=== PATIENT | male | born 1975 | race Asian ===

== ENCOUNTER 2017-06-30 21:15 | Emergency (ER) | payer OTHER ==
[~2017-06-30] VITALS: Ht 182.9 cm; Wt 99.8 kg
[2017-06-30] MEDS ORDERED: HYDROCHLOROT12.5 M1 PO (21:31)
[2017-06-30] MEDS ORDERED: AMLODIPINE BESYLATE PO (21:32)
[2017-06-30 23:08] VITALS: BP 129/79; TEMP 98.1
== END 2017-06-30 23:11 | disposition home or self-care (01) ==
LOC: ED 21:15
DX: T78.40XA Allergy, unspecified, initial encounter (principal); H10.9 Unspecified conjunctivitis
CPT/HCPCS: 99282

== ENCOUNTER 2019-02-09 14:45 | Observation (INO) | payer OTHER ==
[~2019-02-09] VITALS: Ht 182.9 cm; Wt 109.9 kg
[2019-02-09] VITALS (8 sets, daily range): BP systolic 149–159; BP diastolic 73–97; TEMP 97.6–98.1; Ht 182.9 cm; Wt 109.9 kg
[~2019-02-09 14:45] MED LIST: AMLODIPINE BESYLATE PO; HYDROCHLOROT12.5 M1 PO
[2019-02-09 15:20] LABS: PLATELET COUNT 273 K/uL (142-355)
[2019-02-09 15:23] LABS: POTASSIUM 3.9 mmol/L (3.6-5.2); SODIUM 142 mmol/L (136-145)
[2019-02-09 15:30] LABS: PARTIAL THROMBOPLASTIN TIME 23.2 SECONDS (24.5-33.6)
[2019-02-10] VITALS: BP 127/74; TEMP 97.5
[2019-02-10 04:00] VITALS: BP 134/64; TEMP 97.5
--- NOTE | 2019-02-10 05:00 | NUR ---
Patient was admitted wiht Chest Pain and is on a 2 gm Na diet plan and is 6'0" at 242.6 lbs. and IBW = 178+/-10% (160-196 lbs.) and kcal needs for IBW x 25 = 2000 kcal/day, x 30 = 2400, x 35 = 2800, x 40 = 3200 kcal/day, protein needs x .8 to 1.5 = 65 to 121 grams per dya and fluids for weight x 25 to 30 = 2760 to 3300 ml per day and per MD's notes also has diarrhea so needs increased fluids but d/t chest pain maybe does not need increased fluids MD's decision. Patient is 137% IBW and BMI = 32.95 and is Class I Obesity. Labes reveal Creatinine Kinase 349 and 405, gl elevated at 133 and the depressed labs are MCHC, PTT, D-Dimer, and per the patient ate pizza last night and then prior to coming to ER ate hotdogs, pain on a scale of 1-10 at 3 per patient. tingling in the right arm. History of HTN, and on Norvasc and HCTZ, no n/v per patient but has diarrhea, smokes tobacco and drinks alcohol, troponin 405, food poisoning, gastritis, HTN, hyperglycemia, ASA, nitroglycerin, Phenegan, Morphine, GI Cocktail. Recommend: 1-Cardiac NCS High Fiber diet, needs to follow the diet plan 2-Maybe talk with PT about exercise as MD feels is appropriate for the patient. 3-Needs heathier eating and exercise.
[2019-02-10 08:00] VITALS: BP 127/84; TEMP 97.4
--- NOTE | 2019-02-10 13:22 | NUR ---
1230 DISCHARGE INSTRUCTIONS GIVEN AND EXPLAINED TO PT. PT VERBALIZED UNDERSTANDING. [facility] SUN[facility] HE [facility] TO KEEP. PT WILL FOLLOW UP WITH DR BOYKIN NEEDED
== END 2019-02-10 12:47 | disposition home or self-care (01) ==
LOC: ED 14:45 → MED/SURG 15:40
PROVIDERS: ADMIT Hospitalist
DX: R07.89 Other chest pain (principal); I10 Essential (primary) hypertension; R73.9 Hyperglycemia, unspecified; E66.8 Other obesity
CPT/HCPCS: 36415; 80053; 82550; 82553; 83880; 84484; 85027; 85379; 85610; 85730; 93005; 96374; 99220; 99284; G0378; J1650; J1885

== ENCOUNTER 2019-07-21 15:54 | Outpatient (CLI) | payer OTHER ==
[~2019-07-21 15:54] MED LIST changes: +CVS OMEPRAZOLE20 MG PO
== END 2019-07-21 23:34 | disposition home or self-care (01) ==
LOC: RAD 15:54
DX: J02.9 Acute pharyngitis, unspecified (principal)

== ENCOUNTER 2019-08-07 06:22 | Emergency (ER) | payer OTHER ==
[~2019-08-07] VITALS: Ht 182.9 cm; Wt 104.3 kg
[2019-08-07 06:30] VITALS: BP 137/84; TEMP 97.7
[2019-08-07 07:19] LABS: PLATELET COUNT 244 K/uL (142-355)
[2019-08-07 07:24] LABS: POTASSIUM 3.5 mmol/L (3.6-5.2)
== END 2019-08-07 08:38 | disposition home or self-care (01) ==
LOC: ED 06:22
PROVIDERS: Emergency Medicine
DX: R51 Headache (principal)
CPT/HCPCS: 80053; 85027; 93005; 99283

== ENCOUNTER 2019-08-10 00:41 | Emergency (ER) | payer OTHER ==
[~2019-08-10] VITALS: Ht 182.9 cm; Wt 103.0 kg
[2019-08-10 01:41] VITALS: BP 116/65; TEMP 97.7
== END 2019-08-10 01:41 | disposition home or self-care (01) ==
LOC: ED 00:41
DX: J34.89 Other specified disorders of nose and nasal sinuses (principal)
CPT/HCPCS: 96372; 99282; J1885

== ENCOUNTER 2020-01-09 01:51 | Emergency (ER) | payer OTHER ==
[~2020-01-09] VITALS: Ht 182.9 cm; Wt 104.3 kg
[2020-01-09 02:33] VITALS: BP 141/80; TEMP 98.9
== END 2020-01-09 02:34 | disposition home or self-care (01) ==
LOC: ED 01:51
DX: M54.2 Cervicalgia (principal); G44.209 Tension-type headache, unspecified, not intractable
CPT/HCPCS: 99282

== ENCOUNTER 2020-02-06 04:10 | Emergency (ER) | payer OTHER ==
[~2020-02-06] VITALS: Ht 182.9 cm; Wt 104.3 kg
[2020-02-06 04:59] VITALS: BP 136/76; TEMP 97.7
== END 2020-02-06 05:00 | disposition home or self-care (01) ==
LOC: ED 04:10
DX: F41.0 Panic disorder [episodic paroxysmal anxiety] (principal)
CPT/HCPCS: 99282

== ENCOUNTER 2020-03-14 22:56 | Emergency (ER) | payer OTHER ==
[~2020-03-14] VITALS: Ht 182.9 cm; Wt 106.6 kg
[2020-03-14 23:08] VITALS: BP 139/79; TEMP 98
== END 2020-03-14 23:17 | disposition home or self-care (01) ==
LOC: ED 22:56
DX: R51.9 Headache, unspecified (principal)
CPT/HCPCS: 99281

== ENCOUNTER 2020-03-19 14:20 | Emergency (ER) | payer OTHER ==
[~2020-03-19] VITALS: Ht 182.9 cm; Wt 110.2 kg
[2020-03-19 18:37] VITALS: BP 150/81; TEMP 98.2
== END 2020-03-19 18:37 | disposition home or self-care (01) ==
LOC: ED 14:20
DX: R51.9 Headache, unspecified (principal); M62.838 Other muscle spasm; F41.8 Other specified anxiety disorders
CPT/HCPCS: 96372; 99283; J1885

== ENCOUNTER 2020-03-27 14:54 | Emergency (ER) | payer OTHER ==
[~2020-03-27] VITALS: Ht 182.9 cm; Wt 110.2 kg
[2020-03-27 15:05] VITALS: BP 142/79; TEMP 98.1
== END 2020-03-27 15:38 | disposition home or self-care (01) ==
LOC: ED 14:54
DX: F41.0 Panic disorder [episodic paroxysmal anxiety] (principal); F41.8 Other specified anxiety disorders
CPT/HCPCS: 93005; 96372; 99283; J2060

== ENCOUNTER 2020-07-02 11:01 | Emergency (ER) | payer OTHER ==
[~2020-07-02] VITALS: Ht 182.9 cm; Wt 110.2 kg
[2020-07-02 11:10] VITALS: TEMP 97.9
[2020-07-02 12:08] LABS: PLATELET COUNT 281 K/uL (142-355)
[2020-07-02 12:17] LABS: POTASSIUM 4.2 mmol/L (3.6-5.2); SODIUM 140 mmol/L (136-145)
[2020-07-02 13:30] VITALS: BP 127/77
== END 2020-07-02 14:00 | disposition home or self-care (01) ==
LOC: ED 11:01
PROVIDERS: Family Medicine
DX: K29.70 Gastritis, unspecified, without bleeding (principal); K21.9 Gastro-esophageal reflux disease without esophagitis; F41.8 Other specified anxiety disorders
CPT/HCPCS: 80053; 84484; 85027; 93005; 99283

== ENCOUNTER 2020-08-05 01:26 | Emergency (ER) | payer OTHER ==
[2020-08-15 12:47] LABS: POTASSIUM 3.4 mmol/L (3.6-5.2); SODIUM 139 mmol/L (136-145)
[2020-08-15 12:49] LABS: PLATELET COUNT 200 K/uL (142-355)
== END 2020-08-05 03:00 | disposition home or self-care (01) ==
LOC: ED 01:26
PROVIDERS: Family Medicine
DX: R07.89 Other chest pain (principal); K21.9 Gastro-esophageal reflux disease without esophagitis; M79.18 Myalgia, other site
CPT/HCPCS: 80048; 82553; 85027; 93005; 96374; 99284; J1885

== ENCOUNTER 2020-08-20 15:19 | Emergency (ER) | payer OTHER ==
[~2020-08-20] VITALS: Ht 182.9 cm; Wt 104.3 kg
[2020-08-20 16:30] LABS: PLATELET COUNT 307 K/uL (142-355)
[2020-08-20 16:44] LABS: POTASSIUM 3.7 mmol/L (3.6-5.2); SODIUM 139 mmol/L (136-145)
[2020-08-20 18:24] VITALS: BP 143/81; TEMP 97.7
== END 2020-08-20 18:24 | disposition home or self-care (01) ==
LOC: ED 15:19
PROVIDERS: Family Medicine
DX: M25.512 Pain in left shoulder (principal); M62.838 Other muscle spasm
CPT/HCPCS: 80053; 84484; 85027; 93005; 96372; 99283; 99284; J1885

== ENCOUNTER 2020-08-31 05:59 | Emergency (ER) | payer OTHER ==
[~2020-08-31] VITALS: Ht 203.2 cm; Wt 104.3 kg
[2020-08-31 06:05] VITALS: TEMP 98.3
[2020-08-31 06:29] LABS: PLATELET COUNT 275 K/uL (142-355)
[2020-08-31 06:48] LABS: POTASSIUM 3.4 mmol/L (3.6-5.2); SODIUM 139 mmol/L (136-145)
[2020-08-31 07:22] VITALS: BP 137/78
== END 2020-08-31 07:33 | disposition home or self-care (01) ==
LOC: ED 05:59
PROVIDERS: Emergency Medicine
DX: K21.9 Gastro-esophageal reflux disease without esophagitis (principal); F10.10 Alcohol abuse, uncomplicated; Y90.0 Blood alcohol level of less than 20 mg/100 ml; R79.89 Other specified abnormal findings of blood chemistry
CPT/HCPCS: 36415; 80053; 80320; 82150; 83690; 84484; 85027; 93005; 96374; 99284; J3490

== ENCOUNTER 2020-10-03 08:13 | Emergency (ER) | payer OTHER ==
[~2020-10-03] VITALS: Ht 182.9 cm; Wt 104.3 kg
[2020-10-03 08:20] VITALS: TEMP 96.7
[2020-10-03 09:30] VITALS: BP 158/80
== END 2020-10-03 09:30 | disposition home or self-care (01) ==
LOC: ED 08:13
DX: M79.18 Myalgia, other site (principal); T88.1XXA Other complications following immunization, not elsewhere classified, initial encounter; T50.B95A Adverse effect of other viral vaccines, initial encounter; Y84.8 Other medical procedures as the cause of abnormal reaction of the patient, or of later complication, without mention of misadventure at the time of the procedure; Y92.89 Other specified places as the place of occurrence of the external cause
CPT/HCPCS: 93005; 99282

== ENCOUNTER 2020-10-07 16:31 | Emergency (ER) | payer OTHER ==
[~2020-10-07] VITALS: Ht 182.9 cm; Wt 104.3 kg
[2020-10-07 22:38] VITALS: BP 134/80; TEMP 98.2
== END 2020-10-07 22:39 | disposition home or self-care (01) ==
LOC: ED 16:31
DX: G44.40 Drug-induced headache, not elsewhere classified, not intractable (principal); T88.1XXA Other complications following immunization, not elsewhere classified, initial encounter; T50.B95A Adverse effect of other viral vaccines, initial encounter; Y84.8 Other medical procedures as the cause of abnormal reaction of the patient, or of later complication, without mention of misadventure at the time of the procedure; Y92.89 Other specified places as the place of occurrence of the external cause
CPT/HCPCS: 96372; 99283; J1885

== ENCOUNTER 2020-10-17 07:02 | Emergency (ER) | payer OTHER ==
[~2020-10-17] VITALS: Ht 182.9 cm; Wt 106.6 kg
[2020-10-17 07:10] VITALS: BP 138/77; TEMP 96.6
== END 2020-10-17 08:00 | disposition home or self-care (01) ==
LOC: ED 07:02
DX: R09.81 Nasal congestion (principal); U07.1 COVID-19
CPT/HCPCS: 87635; 96372; 99283; J1100; U0003

== ENCOUNTER 2020-10-20 16:06 | Outpatient (CLI) | payer OTHER | END 2020-10-20 19:33 | disposition home or self-care (01) | LOC: RAD 16:06 | PROVIDERS: ATTEND Internal Medicine | DX: R05 Cough (principal) ==

== ENCOUNTER 2021-09-29 05:43 | Emergency (ER) | payer OTHER ==
[~2021-09-29] VITALS: Ht 182.9 cm; Wt 106.6 kg
[2021-09-29 05:43] VITALS: TEMP 98.3
[2021-09-29 06:26] LABS: PLATELET COUNT 281 K/uL (142-355)
[2021-09-29 06:35] LABS: POTASSIUM 3.1 mmol/L (3.6-5.2)
[2021-09-29 06:37] LABS: PARTIAL THROMBOPLASTIN TIME 25.8 SECONDS (24.5-33.6)
[2021-09-29 07:05] VITALS: BP 134/77
== END 2021-09-29 07:05 | disposition home or self-care (01) ==
LOC: ED 05:43
PROVIDERS: Emergency Medicine Emergency Medical Services
DX: S29.011A Strain of muscle and tendon of front wall of thorax, initial encounter (principal); X50.1XXA Overexertion from prolonged static or awkward postures, initial encounter; Y92.89 Other specified places as the place of occurrence of the external cause
CPT/HCPCS: 80053; 84484; 85027; 85610; 85730; 93005; 99283

== ENCOUNTER 2021-12-12 20:37 | Emergency (ER) | payer OTHER ==
[~2021-12-12] VITALS: Ht 182.9 cm; Wt 102.1 kg
[2021-12-12 20:50] VITALS: BP 140/80; TEMP 97.9
== END 2021-12-12 21:47 | disposition home or self-care (01) ==
LOC: ED 20:37
DX: M79.18 Myalgia, other site (principal)
CPT/HCPCS: 96372; 99282; J1885

== ENCOUNTER 2022-01-03 11:27 | Emergency (ER) | payer OTHER ==
[~2022-01-03] VITALS: Ht 182.9 cm; Wt 105.2 kg
[2022-01-03 11:33] VITALS: BP 157/84; TEMP 98.6
[2022-01-03 12:03] LABS: PLATELET COUNT 291 K/uL (142-355)
[2022-01-03 12:26] LABS: POTASSIUM 3.6 mmol/L (3.6-5.2)
[2022-01-03 12:41] LABS: PARTIAL THROMBOPLASTIN TIME 25.3 SECONDS (24.5-33.6)
== END 2022-01-03 14:22 | disposition home or self-care (01) ==
LOC: ED 11:27
PROVIDERS: Emergency Medicine
DX: R68.84 Jaw pain (principal); M54.2 Cervicalgia; M79.18 Myalgia, other site; I71.21 Aneurysm of the ascending aorta, without rupture; R91.1 Solitary pulmonary nodule; I10 Essential (primary) hypertension; G47.33 Obstructive sleep apnea (adult) (pediatric); Z99.89 Dependence on other enabling machines and devices; F17.210 Nicotine dependence, cigarettes, uncomplicated
CPT/HCPCS: 36415; 80053; 84484; 85027; 85379; 85610; 85730; 93005; 99283; Q9963

== ENCOUNTER 2022-02-11 16:20 | Emergency (ER) | payer OTHER ==
[~2022-02-11] VITALS: Ht 182.9 cm; Wt 102.1 kg
[2022-02-11 16:33] VITALS: BP 135/71; TEMP 98.4
[2022-02-11 17:13] LABS: PLATELET COUNT 290 K/uL (142-355)
[2022-02-11 17:22] LABS: POTASSIUM 3.6 mmol/L (3.6-5.2)
== END 2022-02-11 19:30 | disposition home or self-care (01) ==
LOC: ED 16:20
PROVIDERS: Emergency Medicine
DX: R07.89 Other chest pain (principal); M62.838 Other muscle spasm; X58.XXXA Exposure to other specified factors, initial encounter; Y92.89 Other specified places as the place of occurrence of the external cause
CPT/HCPCS: 36415; 80053; 82550; 84484; 85027; 93005; 96374; 99284; J1885; J2175

== ENCOUNTER 2022-04-05 13:25 | Outpatient (CLI) | payer OTHER | END 2022-04-05 19:32 | disposition home or self-care (01) | LOC: LABW 13:25 | PROVIDERS: ATTEND Internal Medicine Cardiovascular Disease | DX: Z79.899 Other long term (current) drug therapy (principal) | CPT/HCPCS: 36415; 80048; 84550 ==

== ENCOUNTER 2022-04-10 15:24 | Emergency (ER) | payer OTHER ==
[~2022-04-10] VITALS: Ht 182.9 cm; Wt 106.6 kg
[2022-04-10 15:30] VITALS: BP 134/74; TEMP 98
[2022-04-10 16:10] LABS: PLATELET COUNT 286 K/uL (142-355)
[2022-04-10 16:17] LABS: POTASSIUM 3.8 mmol/L (3.6-5.2)
== END 2022-04-10 17:25 | disposition home or self-care (01) ==
LOC: ED 15:24
PROVIDERS: Emergency Medicine Emergency Medical Services
DX: R07.89 Other chest pain (principal); X50.1XXA Overexertion from prolonged static or awkward postures, initial encounter; Y92.89 Other specified places as the place of occurrence of the external cause
CPT/HCPCS: 80048; 84484; 85027; 93005; 99283

== ENCOUNTER 2022-04-17 22:55 | Emergency (ER) | payer OTHER ==
[~2022-04-17] VITALS: Ht 182.9 cm; Wt 108.9 kg
[2022-04-18 00:44] LABS: POTASSIUM 3.6 mmol/L (3.6-5.2)
[2022-04-18 00:53] LABS: PLATELET COUNT 301 K/uL (142-355)
[2022-04-18 08:25] VITALS: BP 132/86; TEMP 98.7
== END 2022-04-18 08:25 | disposition short-term general hospital (02) ==
LOC: ED 22:55
PROVIDERS: Emergency Medicine Emergency Medical Services
DX: I71.21 Aneurysm of the ascending aorta, without rupture (principal)
CPT/HCPCS: 36415; 80048; 84484; 85027; 85610; 96361; 96374; 99285; J2060; Q9963

== ENCOUNTER 2022-05-04 13:13 | Emergency (ER) | payer OTHER ==
[~2022-05-04] VITALS: Ht 182.9 cm; Wt 77.1 kg
[2022-05-04 13:26] VITALS: BP 137/87; TEMP 98.7
[2022-05-04 13:51] LABS: POTASSIUM 4.3 mmol/L (3.6-5.2)
[2022-05-04 13:53] LABS: PLATELET COUNT 645 K/uL (142-355)
[2022-05-04 13:58] LABS: PARTIAL THROMBOPLASTIN TIME 33.2 SECONDS (24.5-33.6)
== END 2022-05-04 14:50 | disposition home or self-care (01) ==
LOC: ED 13:13
PROVIDERS: Emergency Medicine
DX: Z79.01 Long term (current) use of anticoagulants (principal); Z98.890 Other specified postprocedural states
CPT/HCPCS: 80053; 85027; 85610; 85730; 99283; J7040

== ENCOUNTER 2022-05-18 15:28 | Outpatient (CLI) | payer OTHER | END 2022-05-18 19:10 | disposition home or self-care (01) | LOC: LAB 15:28 | PROVIDERS: ATTEND Internal Medicine | DX: Z95.2 Presence of prosthetic heart valve (principal); D68.8 Other specified coagulation defects | CPT/HCPCS: 85610 ==

== ENCOUNTER 2022-05-19 13:03 | Emergency (ER) | payer OTHER ==
[~2022-05-19] VITALS: Ht 182.9 cm; Wt 97.5 kg
[2022-05-19 14:25] VITALS: BP 131/83; TEMP 98.5
== END 2022-05-19 14:25 | disposition home or self-care (01) ==
LOC: ED 13:03
DX: R42 Dizziness and giddiness (principal)
CPT/HCPCS: 36415; 85610; 99283

== ENCOUNTER 2022-06-03 22:06 | Emergency (ER) | payer OTHER ==
[~2022-06-03] VITALS: Ht 182.9 cm; Wt 97.5 kg
[2022-06-03 22:18] VITALS: TEMP 97.3
[2022-06-03 23:35] VITALS: BP 137/88
== END 2022-06-03 23:35 | disposition home or self-care (01) ==
LOC: ED 22:06
DX: M25.512 Pain in left shoulder (principal); Z98.890 Other specified postprocedural states
CPT/HCPCS: 99282

== ENCOUNTER 2022-09-24 00:43 | Emergency (ER) | payer OTHER ==
[~2022-09-24] VITALS: Ht 182.9 cm; Wt 100.7 kg
[2022-09-24 00:50] VITALS: TEMP 97.9
[2022-09-24 01:52] LABS: PLATELET COUNT 225 K/uL (142-355)
[2022-09-24 02:01] LABS: POTASSIUM 4.1 mmol/L (3.6-5.2)
[2022-09-24 03:55] VITALS: BP 139/81
== END 2022-09-24 03:55 | disposition home or self-care (01) ==
LOC: ED 00:43
PROVIDERS: Family Medicine
DX: F41.9 Anxiety disorder, unspecified (principal); R51.9 Headache, unspecified; F17.210 Nicotine dependence, cigarettes, uncomplicated
CPT/HCPCS: 80053; 80307; 80320; 81002; 85027; 96360; 99284

== ENCOUNTER 2022-09-29 22:37 | Emergency (ER) | payer OTHER ==
[~2022-09-29] VITALS: Ht 182.9 cm; Wt 99.8 kg
[2022-09-29 22:37] VITALS: TEMP 97.9
[2022-09-29 23:46] LABS: PLATELET COUNT 255 K/uL (142-355)
[2022-09-29 23:51] LABS: POTASSIUM 4.1 mmol/L (3.6-5.2)
[2022-09-30 01:15] VITALS: BP 154/86
== END 2022-09-30 01:16 | disposition home or self-care (01) ==
LOC: ED 22:37
PROVIDERS: Family Medicine
DX: E86.0 Dehydration (principal); E11.9 Type 2 diabetes mellitus without complications; R35.89 Other polyuria; Z87.891 Personal history of nicotine dependence
CPT/HCPCS: 80053; 81002; 85027; 96360; 99284

== ENCOUNTER 2022-10-04 10:39 | Outpatient (CLI) | payer OTHER | END 2022-10-04 21:21 | disposition home or self-care (01) | LOC: LABW 10:39 | PROVIDERS: ATTEND Internal Medicine | DX: Z20.822 Contact with and (suspected) exposure to COVID-19 (principal) | CPT/HCPCS: 87635; U0001 ==

== ENCOUNTER 2023-04-01 17:36 | Emergency (ER) | payer OTHER ==
[~2023-04-01] VITALS: Ht 182.9 cm; Wt 99.8 kg
[2023-04-01 17:44] VITALS: TEMP 97.3
[2023-04-01] MEDS ORDERED: GI COCKTAIL-HYOSCYAMINE 30 ML ML PO ONE ×2 (18:02→18:35)
[2023-04-01 18:40] LABS: PLATELET COUNT 221 K/uL (142-355)
[2023-04-01 18:54] LABS: POTASSIUM 3.8 mmol/L (3.6-5.2)
[2023-04-01 21:26] VITALS: BP 161/92
== END 2023-04-01 21:26 | disposition home or self-care (01) ==
LOC: ED 17:36
PROVIDERS: Internal Medicine Endocrinology, Diabetes & Metabolism
DX: R07.89 Other chest pain (principal); I71.40 Abdominal aortic aneurysm, without rupture, unspecified
CPT/HCPCS: 36415; 80053; 84484; 85027; 99282